=== PATIENT | male | born 1940 | race Caucasian/White ===

== ENCOUNTER 2016-04-24 08:44 | Day surgery (SDC) | payer OTHER, MEDICARE ==
[2016-04-18 09:14] VITALS: BMI 27.2
[2016-04-24] MEDS: CYCLOPENTOLATE 2% OPHTH SOLN 2 ML BOTTLE ONE ×3 (09:15→09:25)
[2016-04-24] MEDS: TROPICAMIDE 1% OPHTH SOLN 15 ML BOTTLE ONE ×3 (09:15→09:25)
[2016-04-24] MEDS: CIPROFLOXACIN 0.3% EYE DROPS 5 ML BOTTLE ONE ×3 (09:15→09:25)
[2016-04-24] MEDS: PHENYLEPHRINE 2.5% OPHTH SOLN 15 ML BOTTLE ONE ×3 (09:15→09:25)
[2016-04-24] MEDS ORDERED: CARBACHOL 0.01% INTRA-OCULAR 1.5 ML VIAL ONE (09:34)
[2016-04-24] MEDS ORDERED: BSS (NA/CA/MG/K) BALANCED SALT SOLUTION OPHTH SOLN 15 ML BOTTLE ONE (09:34)
[2016-04-24] MEDS ORDERED: MIDAZOLAM HCL 2 MG/2 ML SINGLE DOSE VIAL ONE ×2 (10:35→10:50)
[2016-04-24 11:25] VITALS: TEMP 97.6
[2016-04-24 11:57] VITALS: BP 134/76; PULSE 54
--- NOTE | 2016-04-24 13:22 | OP ---
DATE OF OPERATION: 04/24/2016 OPERATIVE PROCEDURE: Lens Phacoemulsification with Posterior Chamber Intraocular Lens Placement Left Eye PREOPERATIVE DIAGNOSIS: Visually Significant Cataract of Left Eye POSTOPERATIVE DIAGNOSIS: Visually Significant Cataract of Left Eye SURGEON: Douglsa Chung M.D. ANESTHESIA: MAC ANESTHESIOLOGIST: PROCEDURE: The patient was brought to the operating room and placed under monitored anesthesia care by Anesthesia. A drop of Tetracaine was then placed over the left eye. The patient was then prepped and draped in the usual sterile manner. A speculum was then placed over the left eye. The eye was then well irrigated with copious amounts of BSS (balanced salt solution). The operating microscope was then moved into position. A paracentesis was performed using a 15 degree blade. At this point 0.5 mL of 1% preservative-free lidocaine was injected into the anterior chamber. Amvisc plus was then injected into the anterior chamber. A clear corneal incision was then formed using a 2.2 mm keratome. A capsulorrhexis was then performed in a continuous circular fashion beginning with a cystotome, completed with an Utratas forceps. Hydrodissection was then performed using BSS on a cannula. The phaco probe was then introduced through the corneal wound and the cataract was removed using the phaco chop technique. Approximately 3 seconds of absolute phaco time was used. The remaining cortex was then removed using irrigation and aspiration with an I/A probe. The capsule was then filled with regular Amvisc and the capsule was noted to be intact. A previously selected foldable posterior chamber intraocular lens was then injected into the capsule through the corneal wound using a lens injector. It was then dialed into position using a Sinskey hook. The Amvisc was then removed using irrigation and aspiration. Miostat was then injected through the paracentesis to constrict the pupil. The paracentesis and corneal wound were then hydrated and noted to be water tight. A drop of Maxitrol was then placed over the eye. The speculum was removed and clear shield was taped over the eye. The patient tolerated the procedure well and there were no surgical complications. The patient was asked to follow up in my office the next day. DOUGLAS CHUNG M.D. [id number]
== END 2016-04-24 11:55 | disposition home or self-care (01) ==
LOC: FASU 08:44
PROVIDERS: ATTEND Ophthalmology
PROC: 08RK3JZ Replacement of Left Lens with Synthetic Substitute, Percutaneous Approach (ICD-10-PCS; principal; 2016-04-24 10:49)
DX: H26.8 Other specified cataract (principal)

== ENCOUNTER 2016-05-08 07:00 | Day surgery (SDC) | payer OTHER, MEDICARE ==
[2016-05-03 13:53] VITALS: BMI 27.2
[2016-05-08] MEDS ORDERED: CARBACHOL 0.01% INTRA-OCULAR 1.5 ML VIAL ONE (07:29)
[2016-05-08] MEDS ORDERED: BSS (NA/CA/MG/K) BALANCED SALT SOLUTION OPHTH SOLN 15 ML BOTTLE ONE (07:29)
[2016-05-08] MEDS ORDERED: LIDOCAINE 1% P/F 10 MG/ML VIAL ONE (07:29)
[2016-05-08] MEDS: PHENYLEPHRINE 2.5% OPHTH SOLN 15 ML BOTTLE ONE ×3 (07:30→07:40)
[2016-05-08] MEDS: TROPICAMIDE 1% OPHTH SOLN 15 ML BOTTLE ONE ×3 (07:30→07:40)
[2016-05-08] MEDS: CIPROFLOXACIN 0.3% EYE DROPS 5 ML BOTTLE ONE ×3 (07:30→07:40)
[2016-05-08] MEDS: CYCLOPENTOLATE 2% OPHTH SOLN 2 ML BOTTLE ONE ×3 (07:30→07:40)
[2016-05-08] MEDS ORDERED: MIDAZOLAM HCL 2 MG/2 ML SINGLE DOSE VIAL ONE (08:58)
--- NOTE | 2016-05-08 09:50 | OP ---
DATE OF PROCEDURE: 05/08/2016 OPERATIVE PROCEDURE: Lens Phacoemulsification with Posterior Chamber Intraocular Lens Placement, Right Eye PREOPERATIVE DIAGNOSIS: Visually Significant Cataract of Right Eye POSTOPERATIVE DIAGNOSIS: Visually Significant Cataract of Right Eye SURGEON: Douglas Chung M.D. ANESTHESIA: MAC ANESTHESIOLOGIST: PROCEDURE: The patient was brought to the operating room and placed under monitored anesthesia care by Anesthesia. A drop of Tetracaine was then placed over the right eye. The patient was then prepped and draped in the usual sterile manner. A speculum was then placed over the right eye. The eye was then well irrigated with copious amounts of BSS (balanced salt solution). The operating microscope was then moved into position. A paracentesis was performed using a 15 degree blade. At this point 0.5 mL of 1% preservative free-lidocaine was injected into the anterior chamber. Amvisc plus was then injected into the anterior chamber. A clear corneal incision was then formed using a 2.2 mm keratome. A capsulorrhexis was then performed in a continuous circular fashion beginning with a cystotome completed with an Utratas forceps. Hydrodissection was then performed using BSS on a cannula. The phaco probe was then introduced through the corneal wound and the cataract was removed using the phaco chop technique. Approximately 3 seconds of absolute phaco time was used. The remaining cortex was then removed using irrigation and aspiration with an I/A probe. The capsule was then filled with regular Amvisc and the capsule was noted to be intact. A previously selected foldable posterior chamber intraocular lens was then injected into the capsule through the corneal wound using a lens injector. It was then dialed into position using a Sinskey hook. The Amvisc was then removed using irrigation and aspiration. Miostat was then injected through the paracentesis to constrict the pupil. The paracentesis and corneal wound were then hydrated and noted to be water tight. A drop of Maxitrol was then placed over the eye. The speculum was removed and clear shield was taped over the eye. The patient tolerated the procedure well and there were no surgical complications. The patient was asked to follow up in my office the next day. DOUGLAS CHUNG M.D. [id number]
[2016-05-08 10:38] VITALS: TEMP 99.2
[2016-05-08 11:03] VITALS: BP 128/80; PULSE 56
== END 2016-05-08 10:15 | disposition home or self-care (01) ==
LOC: FASU 07:00
PROVIDERS: ATTEND Ophthalmology
PROC: 08RJ3JZ Replacement of Right Lens with Synthetic Substitute, Percutaneous Approach (ICD-10-PCS; principal; 2016-05-08 09:04)
DX: H26.9 Unspecified cataract (principal)

== ENCOUNTER 2017-05-28 07:31 | Day surgery (SDC) | payer OTHER, MEDICARE ==
[2017-05-21 16:13] VITALS: BMI 27.5
[2017-05-28] MEDS ORDERED: PROPOFOL 20 ML ONE ×2 (07:36)
[2017-05-28 07:51] VITALS: TEMP 97.4
[2017-05-28 09:21] VITALS: BP 104/60; PULSE 50
--- NOTE | 2017-05-29 16:52 | PATH ---
Surgical Pathology Report Patient Name: MADELEINE NAYLOR [facility]. Rec. #: [id number] /Age/Gender: 1940 (Age: 76) / M Account: [id number] Location: [facility] Taken: 05/28/2017 Received: 05/28/2017 Reported: 05/29/2017 Physicians: Oscar Parks M.D. Specimen(s) Received ANTRUM Clinical History Preoperative diagnosis: Dysphagia Postoperative diagnosis: Esophagitis Final Diagnosis ANTRUM, BIOPSY: MILD CHRONIC GASTRITIS. IMMUNOSTAIN IS NEGATIVE FOR H. PYLORI ORGANISMS. Electronically Signed Ivonne Tam M.D. Gross Description Received in formalin, labeled "antrum" is a jane, irregular portion of soft tissue measuring 0.4 cm. in greatest dimension. The specimen is submitted in toto in one cassette. 05/28/201705/28/2017
== END 2017-05-28 09:30 | disposition home or self-care (01) ==
LOC: FASU-ENDO 07:31
PROVIDERS: ATTEND Internal Medicine Gastroenterology
PROC: 0DB68ZX Excision of Stomach, Via Natural or Artificial Opening Endoscopic, Diagnostic (ICD-10-PCS; principal; 2017-05-28 08:23)
PROC: 0D748DZ Dilation of Esophagogastric Junction with Intraluminal Device, Via Natural or Artificial Opening Endoscopic (ICD-10-PCS; 2017-05-28 08:23)
DX: K29.50 Unspecified chronic gastritis without bleeding (principal); R13.10 Dysphagia, unspecified; K22.2 Esophageal obstruction; K44.9 Diaphragmatic hernia without obstruction or gangrene
CPT/HCPCS: 88305-TC; 88342-TC

== ENCOUNTER → 2018-11-19 | Day surgery (SDC) | payer OTHER, MEDICARE ==
--- NOTE | 2018-11-20 17:58 | PATH ---
Cytology Non-Gynecological Report Patient Name: MADELEINE NAYLOR [facility]. Rec. #: [id number] /Age/Gender: 1940 (Age: 78) / M Account: [id number] Location: RADIOLOGY INTER Taken: 11/19/2018 Received: 11/19/2018 Reported: 11/20/2018 Physicians: Phyllis Rodriguez Specimen(s) Received LEFT THYROID FNA Clinical History Left lobe, 2.12 x 1.60 x 1.54 cm Final Diagnosis THYROID, LEFT, FINE NEEDLE ASPIRATION: SATISFACTORY FOR EVALUATION. BETHESDA III: ATYPIA OF UNDERTERMINED SIGNIFICANCE/FOLLICULAR LESION OF UNDETERMINED SIGNIFICANCE. FEW CLUSTERS OF ATYPICAL FOLLICULAR CELLS WITH NUCLEAR ENLARGEMENT, FOCAL CLEARING, NUCLEAR GROOVES, AND CROWDING ASSOCIATED WITH THICK COLLOID. Comment: Suggest clinical/radiologic correlation and repeat sampling with material for molecular studies (e.g. Thyroseq), as clinically warranted. Electronically Signed Josy Larson M.D. Gross Description Received are eight direct smears, four of which are air-dried and Diff-Quik stained, and four of which are alcohol fixed and Pap stained. Also received is 30 ml of bloody formalin from which one cellblock is prepared.
== END | disposition home or self-care (01) ==
LOC: JRADIR 09:39
PROVIDERS: ATTEND Internal Medicine Geriatric Medicine
PROC: 0G9K3ZX Drainage of Thyroid Gland, Percutaneous Approach, Diagnostic (ICD-10-PCS; principal; 2018-11-19)
DX: E04.1 Nontoxic single thyroid nodule (principal)
CPT/HCPCS: 76942; 88173; 88305-TC

== ENCOUNTER 2021-07-11 06:04 | Inpatient (IN) | payer OTHER, MEDICARE ==
[2021-07-04 15:51] VITALS: BMI 31.8
[2021-07-11] MEDS ORDERED: CEFAZOLIN 2 GM in DEXTROSE 5%-WATER - 100 ML IVPB ONE (07:23)
[2021-07-11] MEDS ORDERED: MIDAZOLAM HCL 2 MG/2 ML SINGLE DOSE VIAL ONE (07:23)
[2021-07-11] MEDS ORDERED: BUPIVACAINE HCL 100 ML ONE (07:23)
[2021-07-11] MEDS ORDERED: BUPIVACAINE LIPOSOME/PF (EXPAREL) 266 MG/20 ML VIAL ONE (07:23)
[2021-07-11] MEDS ORDERED: SODIUM CHLORIDE 0.9% P/F 10 ML VIAL IJ ONE (07:23)
[2021-07-11] MEDS ORDERED: PROPOFOL 20 ML ONE (07:52)
[2021-07-11] MEDS ORDERED: SUCCINYLCHOLINE CHLORIDE 200 MG/10 ML SYRINGE ONE (07:52)
[2021-07-11] MEDS ORDERED: DEXAMETHASONE SOD PHOSPHATE 4 MG/1 ML VIAL ONE (08:04)
[2021-07-11] MEDS ORDERED: TRANEXAMIC ACID 1000 MG/10 ML VIAL ONE (08:04)
[2021-07-11] MEDS ORDERED: ONDANSETRON 4 MG/2 ML VIAL ONE (08:04)
[2021-07-11] MEDS ORDERED: ceFAZolin SODIUM 1 GM VIAL ONE ×3 (08:04→21:02)
[2021-07-11] MEDS ORDERED: MAG HYDROX/AL HYDROX/SIMETH 30 ML UNIT-DOSE CUP PO PRN (10:08)
[2021-07-11] MEDS ORDERED: ONDANSETRON 4 MG/2 ML VIAL IVPUSH PRN ×2 (10:08→10:16)
[2021-07-11] MEDS ORDERED: MAGNESIUM HYDROX 2400MG/30ML ORAL SUSPENSION 30 ML CUP PO PRN (10:08)
[2021-07-11] MEDS ORDERED: LACTATED RINGERS SOLUTION 1,000 ML IV SCH (10:15)
[2021-07-11] MEDS ORDERED: oxyCODONE HCL 5 MG TABLET PO PRN ×2 (10:16)
[2021-07-11] MEDS ORDERED: ACETAMINOPHEN 500 MG TABLET (FP) ONE (10:48)
[2021-07-11] MEDS: ACETAMINOPHEN 500 MG TABLET (FP) PO SCH ×4 (10:56→23:00)
[2021-07-11] MEDS ORDERED: DEXTROSE 5%-WATER - 50 ML IVPB ONE ×2 (16:15→21:02)
[2021-07-11] MEDS: CEFAZOLIN 2 GM in DEXTROSE 5%-WATER - 50 ML IVPB SCH (16:22)
[2021-07-11] MEDS: FAMOTIDINE 20 MG TABLET PO SCH (21:06)
[2021-07-11] MEDS: ASPIRIN 81 MG CHEWABLE TABLETS PO SCH (21:06)
[2021-07-11] MEDS: SENNOSIDES/DOCUSATE COMBO (SENNA PLUS) TABLET (UD) PO SCH (21:06)
[2021-07-11] MEDS ORDERED: ATORVASTATIN CA 40 MG TABLET (FP) PO SCH (22:00)
[2021-07-12] MEDS ORDERED: DEXTROSE 5%-WATER - 50 ML IVPB ONE (05:20)
[2021-07-12] MEDS ORDERED: ceFAZolin SODIUM 1 GM VIAL ONE (05:20)
[2021-07-12] MEDS: ACETAMINOPHEN 500 MG TABLET (FP) PO SCH (06:28)
[2021-07-12] MEDS ORDERED: LEVOTHYROXINE NA 75 MCG TABLET (FP) PO SCH (07:00)
[2021-07-12 08:13] LABS: CALCIUM 8.4 mg/dl (8.5-10)
[2021-07-12] MEDS: CEFAZOLIN 2 GM in DEXTROSE 5%-WATER - 50 ML IVPB SCH ×2 (08:31)
[2021-07-12] MEDS: FAMOTIDINE 20 MG TABLET PO SCH (09:05)
[2021-07-12 09:25] LABS: HEMATOCRIT 34.9 % (35.4-49); HEMOGLOBIN 11.3 GM/dL (11.7-16.9); MCH 29.1 pg (25.7-33.7); MCHC 32.5 g/dl (32.0-35.9); MEAN CELL VOLUME 89.7 fl (80-96); MEAN PLT VOLUME 8.9 fl (7.5-11.1); PLATELET COUNT 300 10^3/uL (134-434); RBC 3.89 M/mm3 (4.00-5.60); RDW 16.1 % (11.9-15.9); WHITE BLOOD COUNT 11.9 K/mm3 (4.0-10.0)
[2021-07-12 09:44] VITALS: BP 138/90; PULSE 83; TEMP 97.3
[2021-07-12] MEDS ORDERED: LOSARTAN POTASSIUM 50 MG TABLET PO SCH (10:00)
[2021-07-12] MEDS ORDERED: amLODIPine BESYLATE 2.5 MG TABLET (FP) PO SCH (10:00)
[2021-07-12] MEDS ORDERED: PANTOPRAZOLE 40 MG TABLET PO SCH (10:00)
[2021-07-12] MEDS ORDERED: PATIENT'S OWN MEDICATION (NON-FORMULARY) (Olmesartan Medoxomil [Olmesartan Medoxomil] 40 M PO SCH (10:00)
[2021-07-12] MEDS ORDERED: MULTIVITAMINS (DAILY MVI) TABLET (FP) PO SCH (10:00)
[2021-07-12] MEDS: SENNOSIDES/DOCUSATE COMBO (SENNA PLUS) TABLET (UD) PO SCH (10:01)
[2021-07-12] MEDS: ASPIRIN 81 MG CHEWABLE TABLETS PO SCH (10:03)
[2021-07-12] MEDS ORDERED: CEPHALEXIN MONOHYDRATE 250 MG CAPSULE (FP) PO SCH (12:00)
[2021-07-12] MEDS ORDERED: ACETAMINOPHEN 500 MG TABLET (FP) PO SCH (14:30)
[2021-07-12] MEDS ORDERED: EZETIMIBE 10 MG TABLET (FP) PO SCH (22:00)
== END 2021-07-12 12:15 | disposition home or self-care (01) | DRG 470 ==
LOC: FM/S 06:04
PROVIDERS: ADMIT Orthopaedic Surgery; ATTEND Orthopaedic Surgery
PROC: 0SRD0J9 Replacement of Left Knee Joint with Synthetic Substitute, Cemented, Open Approach (ICD-10-PCS; principal; 2021-07-11 08:21)
DX: M17.12 Unilateral primary osteoarthritis, left knee (principal)
CPT/HCPCS: 36415; 73560-TC-LT-FY; 80048; 85027; 88305-TC; 88311-TC; 94760; 97010-GP; 97116-GP; 97162-GP

== ENCOUNTER 2022-09-16 06:04 | Day surgery (SDC) | payer OTHER, MEDICARE ==
[2022-09-16 06:50] VITALS: BMI 28.8
[2022-09-16] MEDS ORDERED: CEFAZOLIN 2 GM in DEXTROSE 5%-WATER - 100 ML IVPB ONE (07:00)
[2022-09-16] MEDS ORDERED: VANCOMYCIN 1,000 MG VIAL (RESTRICTED TO ID ONLY) ONE ×2 (07:24→08:25)
[2022-09-16] MEDS ORDERED: PROPOFOL 40 ML ONE (07:29)
[2022-09-16] MEDS ORDERED: VANCOMYCIN 1,000 MG in DEXTROSE 5%-WATER - 250 ML IVPB ONE (07:30)
[2022-09-16] MEDS ORDERED: DEXAMETHASONE SOD PHOSPHATE/PF 10 MG/ML SDV ONE (07:41)
[2022-09-16] MEDS ORDERED: BUPIVACAINE HCL/PF 0.5% (5 MG/ML) 30 ML VIAL IJ ONE (07:41)
[2022-09-16] MEDS ORDERED: MIDAZOLAM HCL 2 MG/2 ML SINGLE DOSE VIAL ONE (07:41)
[2022-09-16] MEDS ORDERED: BUPIVACAINE HCL/PF 0.5% (5MG/ML) 10 ML VIAL ONE (07:41)
[2022-09-16] MEDS ORDERED: TRANEXAMIC ACID 1000 MG/10 ML VIAL IVPUSH ONE (08:00)
[2022-09-16] MEDS ORDERED: TRANEXAMIC ACID 1000 MG/10 ML VIAL ONE ×2 (08:25→10:58)
[2022-09-16] MEDS ORDERED: ceFAZolin SODIUM 1 GM VIAL ONE (08:25)
[2022-09-16] MEDS ORDERED: ONDANSETRON 4 MG/2 ML VIAL ONE (09:57)
[2022-09-16] MEDS ORDERED: BUPIVICAINE 0.25%/MORPH PF/KETOROLAC - 51ML DISP.SYRINGE IA ONE (10:19)
[2022-09-16] MEDS ORDERED: KETOROLAC TROMETHAMINE 30 MG/1 ML VIAL ONE (11:07)
[2022-09-16] MEDS ORDERED: MAG HYDROX/AL HYDROX/SIMETH 30 ML UNIT-DOSE CUP PO PRN (11:56)
[2022-09-16] MEDS ORDERED: MAGNESIUM HYDROX 2400MG/30ML ORAL SUSPENSION 30 ML CUP PO PRN (11:56)
[2022-09-16] MEDS ORDERED: ONDANSETRON 4 MG/2 ML VIAL IVPUSH PRN (11:56)
[2022-09-16] MEDS ORDERED: LACTATED RINGERS SOLUTION 1,000 ML IV SCH (12:00)
[2022-09-16] MEDS ORDERED: oxyCODONE HCL 5 MG TABLET PO PRN (13:03)
[2022-09-16] MEDS: ACETAMINOPHEN 1000 MG/100 ML BAG IVPB ONE ×2 (13:12→14:49)
[2022-09-16] MEDS: LACTATED RINGERS SOLUTION 1,000 ML IV SCH (14:49)
[2022-09-16] MEDS: KETOROLAC TROMETHAMINE 30 MG/1 ML VIAL IVPUSH SCH ×2 (14:50→21:10)
[2022-09-16] MEDS: CEFAZOLIN SODIUM 2 GM in DEXTROSE 5%-WATER 100 ML IVPB SCH ×2 (16:36→23:46)
[2022-09-16] MEDS: SENNOSIDES/DOCUSATE COMBO (SENNA PLUS) TABLET (UD) PO SCH ×2 (21:09→21:29)
[2022-09-16] MEDS: ACETAMINOPHEN 500 MG TABLET (FP) PO SCH ×2 (21:09→21:11)
[2022-09-16] MEDS: GABAPENTIN 300 MG CAPSULE PO SCH (21:09)
[2022-09-16] MEDS: oxyCODONE HCL 10 MG SUSTAINED ACTING TABLET PO SCH (21:10)
[2022-09-16] MEDS: oxyCODONE HCL 5 MG TABLET PO PRN (21:11)
[2022-09-17] MEDS: ACETAMINOPHEN 500 MG TABLET (FP) PO SCH ×3 (03:12→12:42)
[2022-09-17 06:20] VITALS: RESP 18
[2022-09-17] MEDS: oxyCODONE HCL 5 MG TABLET PO PRN ×2 (06:29→12:42)
[2022-09-17] MEDS ORDERED: LEVOTHYROXINE NA 75 MCG TABLET (FP) PO SCH (07:21)
[2022-09-17 08:13] LABS: HEMATOCRIT 37.2 % (35.4-49); HEMOGLOBIN 12.1 G/dL (11.7-16.9); MCH 28.8 pg (25.7-33.7); MCHC 32.4 g/dl (32.0-35.9); MEAN CELL VOLUME 88.7 fl (80-96); MEAN PLT VOLUME 8.8 fl (7.5-11.1); PLATELET COUNT 297.2 10^3/uL (134-434); RBC 4.19 10^6/uL (4.00-5.60); RDW 16.5 % (11.9-15.9); WHITE BLOOD COUNT 13.9 10^3/uL (4.0-10.8)
[2022-09-17] MEDS: CEFAZOLIN SODIUM 2 GM in DEXTROSE 5%-WATER 100 ML IVPB SCH (08:15)
[2022-09-17 08:18] LABS: CALCIUM 8.7 mg/dl (8.5-10); POTASSIUM 4.2 mmol/L (3.5-5.1)
[2022-09-17] MEDS: GABAPENTIN 300 MG CAPSULE PO SCH (09:03)
[2022-09-17] MEDS: oxyCODONE HCL 10 MG SUSTAINED ACTING TABLET PO SCH (09:04)
[2022-09-17] MEDS: SENNOSIDES/DOCUSATE COMBO (SENNA PLUS) TABLET (UD) PO SCH (09:05)
[2022-09-17] MEDS ORDERED: APIXABAN 2.5 MG TABLET PO SCH (10:00)
[2022-09-17] MEDS ORDERED: MULTIVITAMINS (DAILY MVI) TABLET (FP) PO SCH (10:00)
[2022-09-17] MEDS ORDERED: PANTOPRAZOLE 40 MG TABLET PO SCH (10:00)
[2022-09-17] MEDS ORDERED: EZETIMIBE 10 MG TABLET (FP) PO SCH (10:00)
[2022-09-17] MEDS ORDERED: FAMOTIDINE 20 MG TABLET PO SCH (10:00)
[2022-09-17 12:44] VITALS: BP 123/80; PULSE 100; TEMP 98.4
[2022-09-17] MEDS: LACTATED RINGERS SOLUTION 1,000 ML IV SCH (13:59)
[2022-09-17] MEDS ORDERED: ATORVASTATIN CA 40 MG TABLET (FP) PO SCH (22:00)
== END 2022-09-17 17:13 | disposition home or self-care (01) ==
LOC: FASUSAT 06:04 → FM/S 06:04 → UNDOADMIN 06:04 → SUATTDRO 06:04 → EDSTATUS 08:00 → FM/S 13:35 → FASUSAT 09-17 17:13
PROVIDERS: ATTEND Internal Medicine
PROC: 8E0Y0CZ Robotic Assisted Procedure of Lower Extremity, Open Approach (ICD-10-PCS; 2022-09-16)
PROC: 0SR90JA Replacement of Right Hip Joint with Synthetic Substitute, Uncemented, Open Approach (ICD-10-PCS; principal; 2022-09-16 08:51)
DX: M16.11 Unilateral primary osteoarthritis, right hip (principal)
CPT/HCPCS: 20985; 27130; C1776; S2900; 36415; 73502-TC-RT-FY; 80048; 85027; 88305-TC; 88311-TC; 94760; 97010-GP; 97116-GP; 97162-GP; C1889

== ENCOUNTER 2023-01-07 16:15 | Emergency (ER) | payer OTHER, MEDICARE ==
[2023-01-07 16:34] VITALS: BP 140/85; PULSE 104; RESP 16; TEMP 99; BMI 29.2
== END 2023-01-07 19:00 | disposition left against medical advice (07) ==
LOC: FER 16:15
DX: M25.551 Pain in right hip (principal); M25.561 Pain in right knee
CPT/HCPCS: 72170-TC-FY; 72192-TC; 73502-TC-RT-FY; 99284-25

== ENCOUNTER 2023-04-21 18:27 | Inpatient (IN) | payer OTHER, MEDICARE ==
[2023-04-21] MEDS ORDERED: ALBUTEROL SO4 2.5/IPRATROPIUM 0.5 INH SOL 3 ML VIAL.NEB. NEB ONE ×3 (19:01→20:09)
[2023-04-21 19:15] LABS: HEMATOCRIT 38.8 % (35.4-49); HEMOGLOBIN 12.6 G/dL (11.7-16.9); MCH 27.6 pg (25.7-33.7); MCHC 32.5 g/dl (32.0-35.9); MEAN CELL VOLUME 84.8 fl (80-96); MEAN PLT VOLUME 8.7 fl (7.5-11.1); PLATELET COUNT 341.1 10^3/uL (134-434); RBC 4.57 10^6/uL (4.00-5.60); RDW 17.7 % (11.9-15.9); WHITE BLOOD COUNT 12.6 10^3/uL (4.0-10.8)
[2023-04-21 19:22] LABS: INR 2.1 (0.83-1.09); PROTHROMBIN TIME (PATIENT) 24.2 SEC (9.7-13.0)
[2023-04-21 19:24] LABS: ACTIVATED PTT 35.2 SECONDS (25.2-36.5)
[2023-04-21 19:25] LABS: PLATELET ESTIMATE ADEQUATE
[2023-04-21 19:33] LABS: ALBUMIN 3.4 g/dl (3.4-5.0); BILIRUBIN,TOTAL 1.2 mg/dl (0.2-1); CALCIUM 8.3 mg/dl (8.5-10.1); CREATININE 1.1 mg/dl (0.6-1.3); POTASSIUM 3.7 mmol/L (3.5-5.1); TOT PROT 6.2 g/dl (6.4-8.2)
[2023-04-21] MEDS ORDERED: ALBUTEROL SO4 2.5/IPRATROPIUM 0.5 INH SOL 3 ML VIAL.NEB. NEB STA (20:06)
[2023-04-21] MEDS ORDERED: FUROSEMIDE 40 MG/4 ML INJECTABLE VIAL IVPUSH ONE (20:49)
[2023-04-21] MEDS ORDERED: FUROSEMIDE 40 MG/4 ML INJECTABLE VIAL ONE (20:53)
[2023-04-21 22:05] VITALS: BMI 29.0
[2023-04-21 22:48] LABS: EPITHELIAL CELLS 0-5 /hpf
[2023-04-21 22:49] LABS: URIC ACID CRYSTALS FEW /hpf (NONE SEEN)
[2023-04-21] MEDS ORDERED: OSELTAMIVIR PHOSPHATE 75 MG CAPSULE PO ONE (22:51)
[2023-04-21] MEDS ORDERED: ROSUVASTATIN CA 40 MG TABLET PO SCH (22:56)
[2023-04-21] MEDS: EZETIMIBE 10 MG TABLET (FP) PO SCH (23:11)
[2023-04-21] MEDS: APIXABAN 5 MG TABLET PO SCH (23:11)
[2023-04-21] MEDS: guaiFENesin 200 MG/10 ML 10 ML UNIT-DOSE CUPS PO PRN (23:11)
[2023-04-22] MEDS: LEVOTHYROXINE NA 75 MCG TABLET (FP) PO SCH (06:13)
[2023-04-22] MEDS: LOSARTAN POTASSIUM 50 MG TABLET PO SCH (09:43)
[2023-04-22] MEDS: OSELTAMIVIR PHOSPHATE 75 MG CAPSULE PO SCH ×2 (09:43→21:04)
[2023-04-22] MEDS: APIXABAN 5 MG TABLET PO SCH ×2 (09:43→21:04)
[2023-04-22] MEDS: FAMOTIDINE 20 MG TABLET PO SCH ×2 (09:43→21:04)
[2023-04-22 09:44] LABS: CALCIUM 8.2 mg/dl (8.5-10.1); POTASSIUM 3.7 mmol/L (3.5-5.1)
[2023-04-22 09:45] LABS: BASO % 0.1 % (0-2.0); HEMOGLOBIN 12.2 GM/dL (11.7-16.9); LYMPH % 16.1 % (8-40); MCH 26.8 pg (25.7-33.7); MCHC 32.3 g/dl (32.0-35.9); MEAN CELL VOLUME 83.1 fl (80-96); MEAN PLT VOLUME 8.7 fl (7.5-11.1); MONO % 10.2 % (3.8-10.2); NEUT % 73.6 % (42.8-82.8); PLATELET COUNT 365 10^3/uL (134-434); RBC 4.57 M/mm3 (4.00-5.60); RDW 17.4 % (11.9-15.9); WHITE BLOOD COUNT 8.8 K/mm3 (4.0-10.0)
[2023-04-22] MEDS ORDERED: PATIENT'S OWN MEDICATION (NON-FORMULARY) (Olmesartan Medoxomil [Olmesartan Medoxomil] 40 M PO SCH (10:00)
[2023-04-22] MEDS: CEFTRIAXONE 1 GM in DEXTROSE 5%-WATER - 50 ML IVPB SCH (11:53)
[2023-04-22] MEDS: methylPREDNISolone NA SUCC 40 MG/1 ML VIAL IVPUSH SCH (17:02)
[2023-04-22] MEDS: guaiFENesin 200 MG/10 ML 10 ML UNIT-DOSE CUPS PO PRN (21:04)
[2023-04-22] MEDS: LEVALBUTEROL HCL 0.63 MG/3 ML VIAL.NEB. IH SCH (21:04)
[2023-04-22] MEDS: EZETIMIBE 10 MG TABLET (FP) PO SCH (21:04)
[2023-04-23] MEDS: LEVOTHYROXINE NA 75 MCG TABLET (FP) PO SCH (05:59)
[2023-04-23 09:07] LABS: ALBUMIN 3.1 g/dl (3.4-5.0); BILIRUBIN,TOTAL 1.1 mg/dl (0.2-1); CALCIUM 8.5 mg/dl (8.5-10.1); CREATININE 1.1 mg/dl (0.6-1.3); POTASSIUM 3.8 mmol/L (3.5-5.1); TOT PROT 5.9 g/dl (6.4-8.2)
[2023-04-23] MEDS: OSELTAMIVIR PHOSPHATE 75 MG CAPSULE PO SCH ×2 (09:52→21:19)
[2023-04-23] MEDS: FAMOTIDINE 20 MG TABLET PO SCH ×2 (09:52→21:19)
[2023-04-23] MEDS: APIXABAN 5 MG TABLET PO SCH ×2 (09:52→21:19)
[2023-04-23] MEDS: LEVALBUTEROL HCL 0.63 MG/3 ML VIAL.NEB. IH SCH ×3 (09:52→21:18)
[2023-04-23] MEDS: CEFTRIAXONE 1 GM in DEXTROSE 5%-WATER - 50 ML IVPB SCH (09:52)
[2023-04-23] MEDS: LOSARTAN POTASSIUM 50 MG TABLET PO SCH (09:52)
[2023-04-23] MEDS: methylPREDNISolone NA SUCC 40 MG/1 ML VIAL IVPUSH SCH (09:52)
[2023-04-23 10:45] LABS: BASO % 0.1 % (0-2.0); EOS % 0.1 % (0-4.5); HEMATOCRIT 36.2 % (35.4-49); HEMOGLOBIN 12.5 GM/dL (11.7-16.9); MCH 28.5 pg (25.7-33.7); MCHC 34.6 g/dl (32.0-35.9); MEAN CELL VOLUME 82.3 fl (80-96); MEAN PLT VOLUME 8.6 fl (7.5-11.1); MONO % 10.9 % (3.8-10.2); NEUT % 69.9 % (42.8-82.8); PLATELET COUNT 410 10^3/uL (134-434); RDW 17.5 % (11.9-15.9); WHITE BLOOD COUNT 8.6 K/mm3 (4.0-10.0)
[2023-04-23] MEDS: EZETIMIBE 10 MG TABLET (FP) PO SCH (21:19)
[2023-04-23 22:19] VITALS: RESP 18
[2023-04-24] MEDS: guaiFENesin 200 MG/10 ML 10 ML UNIT-DOSE CUPS PO PRN
[2023-04-24] MEDS: LEVOTHYROXINE NA 75 MCG TABLET (FP) PO SCH (06:18)
[2023-04-24] MEDS: LEVALBUTEROL HCL 0.63 MG/3 ML VIAL.NEB. IH SCH (09:44)
[2023-04-24] MEDS: CEFTRIAXONE 1 GM in DEXTROSE 5%-WATER - 50 ML IVPB SCH (09:45)
[2023-04-24] MEDS: FAMOTIDINE 20 MG TABLET PO SCH (09:45)
[2023-04-24] MEDS: APIXABAN 5 MG TABLET PO SCH (09:45)
[2023-04-24] MEDS: LOSARTAN POTASSIUM 50 MG TABLET PO SCH (09:45)
[2023-04-24] MEDS: methylPREDNISolone NA SUCC 40 MG/1 ML VIAL IVPUSH SCH (09:45)
[2023-04-24] MEDS: OSELTAMIVIR PHOSPHATE 75 MG CAPSULE PO SCH (09:46)
[2023-04-24 11:25] VITALS: BP 125/77; PULSE 93; TEMP 98.2
== END 2023-04-24 13:10 | disposition home or self-care (01) | DRG 291 ==
LOC: SUPCPDRO 18:27 → FER 18:27 → FM/S 20:51
PROVIDERS: ADMIT Internal Medicine
DX: I11.0 Hypertensive heart disease with heart failure (principal); I50.31 Acute diastolic (congestive) heart failure; J96.01 Acute respiratory failure with hypoxia; E03.9 Hypothyroidism, unspecified; I25.10 Atherosclerotic heart disease of native coronary artery without angina pectoris; K21.9 Gastro-esophageal reflux disease without esophagitis; I25.2 Old myocardial infarction; E78.00 Pure hypercholesterolemia, unspecified; J10.1 Influenza due to other identified influenza virus with other respiratory manifestations; K44.9 Diaphragmatic hernia without obstruction or gangrene; E11.9 Type 2 diabetes mellitus without complications; I48.91 Unspecified atrial fibrillation; E66.9 Obesity, unspecified; Z68.29 Body mass index [BMI] 29.0-29.9, adult; Z95.5 Presence of coronary angioplasty implant and graft; Z96.651 Presence of right artificial knee joint; Z96.642 Presence of left artificial hip joint
CPT/HCPCS: 0241U-QW; 36415; 70450-TC; 71045-TC-FY; 72125-TC; 80048; 80053; 81003; 81015; 82550; 83880; 84443; 84484; 85025; 85027; 85610; 85730; 93005; 97116-GP; 97161-GP; 99285-25